=== PATIENT | male | born 1985 | race Caucasian/White ===

== ENCOUNTER → 2017-04-29 | Outpatient (CLI) | payer OTHER ==
--- NOTE | 2017-04-29 16:30 | REP ---
RIGHT HAND, FOUR VIEWS: HISTORY: Pain. There is a nondisplaced fracture of the head of the 5th metacarpal. There is no dislocation. The joint spaces are normal in appearance. IMPRESSION: Nondisplaced fracture of the head of the 5th metacarpal. Signed by Albaro Hernandez MD 04/29/2017 05:06 P
== END ==
LOC: M LRY 13:43
PROVIDERS: ATTEND Physician Assistant Medical
DX: S60.221A Contusion of right hand, initial encounter (principal); W18.30XA Fall on same level, unspecified, initial encounter; Y92.009 Unspecified place in unspecified non-institutional (private) residence as the place of occurrence of the external cause

== ENCOUNTER → 2017-04-29 | Outpatient (REF) | payer OTHER | LOC: M SFHCLERA 13:40 | PROVIDERS: ATTEND Physician Assistant Medical | DX: S60.221A Contusion of right hand, initial encounter (principal); X58.XXXA Exposure to other specified factors, initial encounter; Y92.9 Unspecified place or not applicable; Y93.9 Activity, unspecified; Y99.9 Unspecified external cause status ==

== ENCOUNTER → 2018-11-21 | Outpatient (CLI) | payer OTHER ==
[~2018-11-21] MED LIST: ISOVUE-370 76% 100ML VIAL (Q9967) As Ordered ONE; VITA200028 PO; ZYRTTAB8 PO
--- NOTE | 2018-12-02 07:44 | REP ---
Clinical: Follow up lymphadenopathy and pulmonary nodule. Comparison: Outside examinations dated 02/16/2018, 02/26/2017 Technique: Axial contrast enhanced images from the thoracic inlet to the upper abdomen with coronal and sagittal re-formations using 100 ml Isovue 370 intravenous contrast material. Findings: The bilateral lung rodriguez are relatively well aerated, symmetric and essentially clear. No acute consolidation, significant nodule or mass lesion appreciated. There is a stable calcified granuloma in the periphery of the right upper lobe (image 43). No effusion. No pneumothorax. Tracheobronchial tree is patent. Mediastinum including thoracic aorta, pulmonary vasculature, and heart/pericardium are normal. Mildly prominent left axillary lymph nodes remain essentially stable. No significant mediastinal or hilar adenopathy identified. Musculoskeletal structures are intact. Impression: 1. No acute mediastinal or pleuroparenchymal process. 2. Stable calcified granuloma in the periphery of the right upper lobe. 3. Mildly prominent left axillary lymph nodes unchanged through 02/26/2017. Electronically Signed by Ney Morgan MD 12/02/2018 07:36 A
== END ==
LOC: M RAD 13:23
PROVIDERS: ATTEND Internal Medicine Hematology & Oncology
DX: R91.1 Solitary pulmonary nodule (principal); R59.0 Localized enlarged lymph nodes
CPT/HCPCS: 71260; Q9967

== ENCOUNTER → 2020-01-22 | Outpatient (CLI) | payer OTHER ==
[~2020-01-22] MED LIST changes: -ISOVUE-370 76% 100ML VIAL (Q9967) As Ordered ONE
[2020-02-25 02:59] LABS: ERYTHROCYTE SEDIMENTATION RATE 2 mm/hr (0-15)
[2020-02-25 03:28] LABS: BASO # 0.1 10^3/uL (0.0-0.2); BASO % 0.5 % (0.0-1.0); EOS # 0.1 10^3/uL (0.0-0.5); HEMATOCRIT 46.7 % (42.0-52.0); HEMOGLOBIN 15.6 g/dl (13.5-17.5); LYMPH # 1.2 10^3/uL (1.5-5.0); LYMPH % 11.9 % (24.0-44.0); MEAN CORPUSCULAR HEMOGLOBIN 31.5 pg (27.0-33.0); MEAN CORPUSCULAR HGB CONC 33.4 g/dl (32.0-36.5); MEAN CORPUSCULAR VOLUME 94.3 fl (80.0-96.0); MONO # 0.7 10^3/uL (0.0-0.8); MONO % 7.2 % (0.0-5.0); PLATELET COUNT, AUTOMATED 298 10^3/uL (150-450); RED BLOOD COUNT 4.95 10^6/uL (4.30-6.10); WHITE BLOOD COUNT 10.1 10^3/uL (4.0-10.0)
[2020-02-29 08:02] LABS: ANTINUCLEAR ANTIBODIES DIRECT See Separate Report
[2020-02-29 08:03] LABS: IGE RECEPTOR ABY 1 SEE SEPARATE REPORT
[2020-03-04 10:46] LABS: ALBUMIN 4.1 GM/DL (3.2-5.2); ALT/SGPT 44 U/L (12-78); BILIRUBIN,TOTAL 0.4 MG/DL (0.2-1.0); BLOOD UREA NITROGEN 15 MG/DL (7-18); CARBON DIOXIDE LEVEL 27 MEQ/L (21-32); CHLORIDE LEVEL 105 MEQ/L (98-107); CREATININE FOR GFR 0.97 MG/DL (0.70-1.30); GLOMERULAR FILTRATION RATE > 60.0 (>60); GLUCOSE, FASTING 104 MG/DL (70-100); POTASSIUM SERUM 4.2 MEQ/L (3.5-5.1); RHEUMATOID FACTOR QUANT < 10.0 IU/ML (<15.0); SODIUM LEVEL 137 MEQ/L (136-145); THYROGLOBULIN ANTIBODY < 15.0 U/ML (<60.0); THYROXINE (T4) 6.9 UG/DL (4.5-12.0); TOTAL PROTEIN 7.7 GM/DL (6.4-8.2); TOTAL T3 88.7 NG/DL (60.0-181.0)
== END ==
LOC: M LAB 14:57
PROVIDERS: ATTEND Allergy & Immunology Allergy
DX: L50.1 Idiopathic urticaria (principal)

== ENCOUNTER → 2022-09-15 | Outpatient (REF) | LOC: M SLEEP HO 10:00 | PROVIDERS: ATTEND Physician Assistant | DX: G47.33 Obstructive sleep apnea (adult) (pediatric) (principal) ==